=== PATIENT | female | born 1960 | race Caucasian/White ===

== ENCOUNTER 2018-11-05 14:18 | Emergency (ER) | payer MEDICARE, OTHER ==
[~2018-11-05] VITALS: Ht 162.6 cm; Wt 72.6 kg
[~2018-11-05 14:18] MED LIST: ALPR1TAB6 PO; ASPI325T8 PO; BACL10TA PO; BUTA1CAP58 PO; CEPH500C; CRESTOR10 MG PO; CYCL-331 PO; DOCUSATE; FLUC200T4; FLUC200T4 PO; FLUO15CR2 TP; FLUT100D IH; FURO-68 PO; HYDR-2765 PO; MECL25TA3 PO; MINO100T2 PO; MULT1TAB6 PO; NITR0.4T SL; OMEP20TA8 PO; OXYC80TA16 PO; POTA20TA82 PO; TOPI25TA7 PO; TRAZ150T49 PO; VERA240T8 PO; [UNRECOGNIZED DRUG - OTHER]
[2018-11-05] MEDS ORDERED: IV NORMAL SALINE 1,000ML 1,000 ML IV ONE (14:45)
[2018-11-05] MEDS ORDERED: IPRATRPIUM/ALBUTEROL 0.5/2.5MG 3 ML NEBU. ONE (14:54)
--- NOTE | 2018-11-05 14:59 | PHYS DOC ---
Past History Past Medical History: Fibromyalgia, Other Past Surgical History: Lumbar Laminectomy Smoking: Greater than 1 pack/day Alcohol Use: None Drug Use: None Adult General Chief Complaint Chief Complaint: SHORTNESS OF BREATH HPI HPI 58-year-old female presents with shortness of breath. The patient has had increasing shortness of breath and productive cough for the last 2 weeks. It does seem to be getting worse. The patient uses breathing treatments at home. She uses Xopenex and Flovent. The patient has several other chronic diseases. She continues to smoke cigarettes. She does not believe she's had a fever at home. She's had decreased exercise tolerance. She denies chest pain or di aphoresis. Review of Systems Review of Systems Constitutional: Denies fever or chills [] Eyes: Denies change in visual acuity, redness, or eye pain [] HENT: Nasal congestion. Denies or sore throat [] Respiratory: Productive cough with shortness of breath [] Cardiovascular: No additional information not addressed in HPI [] GI: Denies abdominal pain, nausea, vomiting, bloody stools or diarrhea [] : Denies dysuria or hematuria [] Musculoskeletal: Denies back pain or joint pain [] Integument: Denies rash or skin lesions [] Neurologic: Denies headache, focal weakness or sensory changes [] Endocrine: Denies polyuria or polydipsia [] All other systems were reviewed and found to be within normal limits, except as documented in this note. Current Medications Current Medications Current Medications Medications (Trade) Dose Ordered Sig/Azucena Start Time Stop Time Status Last Admin Dose Admin Albuterol/ Ipratropium (Duoneb) 3 ml 1X ONCE 11/05/18 14:45 11/05/18 14:46 UNV Methylprednisolone Sodium Succinate (SOLU-Medrol 125MG VIAL) 125 mg 1X ONCE 11/05/18 14:45 11/05/18 14:46 UNV Sodium Chloride 1,000 ml @ 1,000 mls/hr 1X ONCE 11/05/18 14:45 11/05/18 15:44 UNV Allergies Allergies Allergies Coded Allergies Type Severity Reaction Last Updated Verified Methadone Allergy Intermediate rash 06/24/13 Yes duloxetine HCl Allergy Intermediate rash 06/24/13 Yes NSAIDS (Non-Steroidal Anti-Inflamma Allergy Unknown 09/03/13 Yes Penicillins Allergy Unknown Rash 09/03/13 Yes Sulfa (Sulfonamide Antibiotics) Allergy Unknown Rash 09/03/13 Yes pregabalin Allergy Unknown 06/24/13 Yes Physical Exam Physical Exam Constitutional: Well developed, well nourished, no acute distress, non-toxic appearance. [] HENT: Normocephalic, atraumatic, bilateral external ears normal, oropharynx moist, no oral exudates, nose normal. [] Eyes: PERRLA, EOMI, conjunctiva normal, no discharge. [] Neck: Normal range of motion, no tenderness, supple, no stridor. [] Cardiovascular:Heart rate regular rhythm, no murmur [] Lungs & Thorax: Diffuse bilateral expiratory wheezing[] Abdomen: Bowel sounds normal, soft, no tenderness, no masses, no pulsatile masses. [] Skin: Warm, dry, no erythema, no rash. [] Back: No tenderness, no CVA tenderness. [] Extremities: No tenderness, no cyanosis, no clubbing, ROM intact, no edema. [] Neurologic: Alert and oriented X 3, normal motor function, normal sensory function, no focal deficits noted. [] Psychologic: Affect normal, judgement normal, mood normal. [] Current Patient Data Vital Signs Vital Signs Date Time Temp Pulse Resp B/P (MAP) Pulse Ox O2 Delivery O2 Flow Rate FiO2 11/05/18 14:29 Room Air 11/05/18 14:29 98.1 81 20 98 EKG EKG [] Radiology/Procedures Radiology/Procedures [] Course & Med Decision Making Course & Med Decision Making Pertinent Labs and Imaging studies reviewed. (See chart for details) The patient appears to be having a COPD exacerbation. Workup is still pending. The patient was nice enough to bring us a sputum sample and a stool sample that she has had in her refrigerator for 4 days. I do not believe these will meet criteria for lab use. The patient's chest x-ray is negative for pneumonia. It is similar to previous x-ray in 2013. The patient appears to be having a COPD exacerbation. I have given her 125 of Solu-Medrol and a DuoNeb treatment. The patient states that she has trouble with prednisone at home. I will discharge her on prednisolone instead. The patient has had acceptable O2 saturations throughout her time in the ED. She is stable for discharge at this time. [] Dragon Disclaimer Dragon Disclaimer This electronic medical record was generated, in whole or in part, using a voice recognition dictation system. Departure Departure: Impression: Primary Impression: COPD exacerbation Disposition: 01 HOME, SELF-CARE Condition: STABLE Referrals: BEVERLY JONES MD (PCP) Patient Instructions: Chronic Obstructive Pulmonary Disease Exacerbation, [id number] Scripts Ipratropium/Albuterol Sulfate (DUONEB 0.5-3(2.5) MG/3 ML) 3 Ml Ampul.neb 3 ML NEB QID PRN for SHORTNESS OF BREATH, #60 EACH Prov: BOOGIE JEFFERY DO 11/05/18 Dexamethasone (Decadron) 6 Mg Tablet 6 MG PO DAILY for COPD for 5 Days, #5 TAB Prov: BOOGIE JEFFERY DO 11/05/18 BOOGIE JEFFERY DO Nov 05, 2018 14:59
[2018-11-05 15:06] LABS: BASO # 0.1 x10^3/uL (0.0-0.2); BASO % 1 % (0-3); EOS # 0.2 x10^3/uL (0.0-0.7); EOS % 2 % (0-3); HEMATOCRIT 38.2 % (36.0-47.0); HEMOGLOBIN 13.1 g/dL (12.0-15.5); LYMPH # 2.4 x10^3/uL (1.0-4.8); LYMPH % 26 % (24-48); MEAN CORPUSCULAR HEMOGLOBIN 33 pg (25-35); MEAN CORPUSCULAR HGB CONC 34 g/dL (31-37); MEAN CORPUSCULAR VOLUME 96 fL (79-100); MONO # 0.6 x10^3/uL (0.0-1.1); MONO % 6 % (0-9); NEUT # 6.1 x10^3uL (1.8-7.7); NEUT % 65 % (31-73); PLATELET COUNT 467 x10^3/uL (140-400); RED BLOOD COUNT 3.97 x10^6/uL (3.50-5.40); RED CELL DISTRIBUTION WIDTH 12.4 % (11.5-14.5); WHITE BLOOD COUNT 9.4 x10^3/uL (4.0-11.0)
[2018-11-05] MEDS ORDERED: IPRATRPIUM/ALBUTEROL 0.5/2.5MG 3 ML NEBU. NEB ONE (15:15)
[2018-11-05] MEDS ORDERED: methylPREDNISolone SOD SUCC PF 125 MG/2 ML VIAL. IV ONE (15:15)
[2018-11-05 15:19] LABS: ALBUMIN 2.6 g/dL (3.4-5.0); ALBUMIN/GLOBULIN RATIO 0.6 (1.0-1.7); CALCIUM 9.6 mg/dL (8.5-10.1); CREATININE 0.8 mg/dL (0.6-1.0); GFR 74.2; POTASSIUM 3.5 mmol/L (3.5-5.1); TOTAL BILIRUBIN 0.4 mg/dL (0.2-1.0); TOTAL PROTEIN 7.2 g/dL (6.4-8.2)
[2018-11-05] MEDS ORDERED: IPRA3AMP29 NEB (16:08)
[2018-11-05] MEDS ORDERED: DEXA6TAB6 PO (16:08)
[2018-11-05 16:20] VITALS: BP 114/67
--- NOTE | 2018-11-05 16:59 | RAD ---
EXAM: CHEST 2 VIEWS. HISTORY: Shortness of breath. COMPARISON: 09/02/2012. FINDINGS: Frontal and lateral views of the chest are obtained. Mildly increased opacity in the left base posteriorly on the lateral projection suggests lower lobe infiltrate likely on the left on comparison with the frontal projection. Mildly increased interstitial opacities elsewhere likely reflects scarring superimposed on chronic obstructive pulmonary disease. There is no pneumothorax or pleural effusion. The heart is not enlarged. Cholecystectomy clips are noted. IMPRESSION: 1. Suspect a left lower lobe infiltrate. Follow-up to resolution is recommended. 2. Chronic obstructive pulmonary disease with bibasilar interstitial scarring. Electronically signed by: Vishnu Pelaez MD (11/05/2018 4:57 PM) [facility]
--- NOTE | 2018-11-06 07:53 | EKG ---
[address] [address] Test Date: 2018-11-05 Test Time: 15:11:09 Pat Name: CAROL CASTELAN Department: Room: Gender: F Maintenance Coordinator: : [id number] Requested By: BOOGIE JEFFERY Order Number: [id number] Reading MD: Measurements Intervals [place] Rate: 76 P: 49 SD: 126 QRS: 36 QRSD: 94 T: 40 QT: 366 QTc: 416 Interpretive Statements SINUS RHYTHM CONSIDER RIGHT VENTRICULAR HYPERTROPHY QRS(T) CONTOUR ABNORMALITY CONSIDER ANTEROLATERAL MYOCARDIAL DAMAGE T ABNORMALITY IN ANTERIOR LEADS ABNORMAL ECG RI6.01 No previous ECG available for comparison
== END 2018-11-05 16:20 | disposition home or self-care (01) ==
LOC: ER 14:18
DX: J44.1 Chronic obstructive pulmonary disease with (acute) exacerbation (principal); M79.7 Fibromyalgia; F17.200 Nicotine dependence, unspecified, uncomplicated; Z88.0 Allergy status to penicillin; Z88.2 Allergy status to sulfonamides; Z88.6 Allergy status to analgesic agent; Z88.8 Allergy status to other drugs, medicaments and biological substances
CPT/HCPCS: 36415; 71046; 80053; 84484; 85025; 93005; 94640; 96374; 99285; J2930; J7620; J7030